=== PATIENT | male | born 1950 ===

== ENCOUNTER 2024-08-01 07:45 | Inpatient (IN) | payer OTHER ==
[~2024-08-01] VITALS: Ht 172.7 cm; Wt 97.5 kg
[2024-08-01 09:44] LABS: HEMATOCRIT 46.1 % (39.0-48.0); HEMOGLOBIN 15.6 g/dL (13-16.00); MEAN CELL VOLUME 91.7 fL (80.0-100.00); MEAN CORPUSCULAR HEMOGLOBIN 31.1 pg (27.00-32.0); MEAN CORPUSCULAR HGB CONC 33.9 g/dl (32.0-36.0); PLATELET COUNT 184 K/uL (150-450); RED BLOOD COUNT 5.02 M/uL (4.00-6.00); RED CELL DISTRIBUTION WIDTH 14.3 % (11.5-14.5)
[2024-08-01 09:48] LABS: PH,URINE 5.5 (5.0-8.0); URINE APPEARANCE Clear; URINE BILIRRUBIN Negative (NEGATIVE); URINE COLOR Yellow; URINE GLUCOSE Negative (NEGATIVE); URINE KETONE Negative (NEGATIVE); URINE LEUKOCYTE Negative; URINE NITRATE Negative; URINE PROTEIN Negative (NEGATIVE); URINE UROBILINOGEN 0.2 E.U./dl
[2024-08-01 09:49] LABS: URINE EPITHELIAL CELLS 1.5 uL (0.0-38.8); URINE RBC 46.1 uL (0.0-20.8)
[2024-08-01] MEDS ORDERED: ECOTRIN325 M1 (09:49)
[2024-08-01] MEDS ORDERED: DIOVAN320 MG (09:49)
[2024-08-01] MEDS ORDERED: LIPITOR (09:50)
[2024-08-01] MEDS ORDERED: ZYRTEC (09:50)
[2024-08-01 09:52] VITALS: BP 137/69
[2024-08-01 09:52] LABS: URINE CAST 0.15 uL (0.0-1.40); URINE WBC 1.2 uL (0.0-23.2)
[2024-08-01 09:53] LABS: URINE BLOOD TRACES
[2024-08-01 10:02] LABS: INR 1.05; PARTIAL THROMBOPLASTIN TIME 29.6 SECONDS (22.0-34.0); PROTHROMBIN TIME 11.4 SECONDS (9.0-11.5)
[2024-08-01 11:03] LABS: ALBUMIN 3.7 gm/dL (3.4-5.0); BILIRUBIN TOTAL 0.63 mg/dL (0.3-1.2); CALCIUM 9.4 mg/dL (8.5-10.1); CREATININE SERUM 1.13 mg/dL (0.70-1.30); GFR 63.61; GLOBULINA 3.6 G/DL (2.4-3.5); POTASSIUM 4.17 mEq/L (3.5-5.1); TOTAL PROTEIN 7.3 gm/dL (6.4-8.2)
[2024-08-01 12:23] LABS: RH POSITIVE
[2024-08-07] MEDS ORDERED: TRANEXAMIC ACID 100MG/1ML (1000MG) AMPUL IV ONE ×2 (11:15)
[2024-08-07] MEDS ORDERED: CEFAZOLIN SODIUM 1,000 MG VIAL IV SCH ×2 (11:15→17:00)
[2024-08-07] MEDS ORDERED: ISOPROPYL ALCOHOL 30 ML OUNCE TOP ONE (11:30)
[2024-08-07] MEDS ORDERED: VANCOMYCIN HCL 1,000 MG VIAL IR ONE (11:30)
[2024-08-07] MEDS ORDERED: ACETAMINOPHEN 500 MG GEL..CAP PO SCH (12:00)
[2024-08-07] MEDS ORDERED: MORPHINE SULFATE 4 MG/ML CARTRIDGE IV PRN (12:00)
[2024-08-07] MEDS ORDERED: SODIUM CHLORIDE 0.45 % 1,000 ML IV SCH (12:00)
[2024-08-07] MEDS ORDERED: OxyCODONE HCL 5 MG TABLET (ROXICODONE) PO PRN (12:00)
[2024-08-07] MEDS ORDERED: ONDANSETRON HCL 2 MG/ML VIAL IV PRN (12:00)
[2024-08-07] MEDS ORDERED: MORPHINE SULFATE 4 MG/ML VIAL IV ONE ×3 (16:40→23:20)
[2024-08-07] MEDS ORDERED: GABAPENTIN 300 MG CAPSULE PO SCH (17:00)
[2024-08-07] MEDS ORDERED: ENALAPRILAT DIHYDRATE 1.25 MG/ML VIAL IV PRN (18:15)
[2024-08-08 02:23] VITALS: BP 137/69; O2SAT 99
[2024-08-08 07:08] LABS: HEMOGLOBIN 13.8 g/dL (13-16.00); MEAN CELL VOLUME 90.5 fL (80.0-100.00); MEAN CORPUSCULAR HEMOGLOBIN 30.5 pg (27.00-32.0); MEAN CORPUSCULAR HGB CONC 33.8 g/dl (32.0-36.0); PLATELET COUNT 175 K/uL (150-450); RED BLOOD COUNT 4.53 M/uL (4.00-6.00); RED CELL DISTRIBUTION WIDTH 14.8 % (11.5-14.5)
[2024-08-08] MEDS ORDERED: ELIQUIS2.5 MG PO (08:19)
[2024-08-08] MEDS ORDERED: DUI500 PO (08:19)
[2024-08-08] MEDS ORDERED: PERCOCET 5-3251 EACH PO (08:19)
[2024-08-08 08:40] VITALS: BP 118/66; O2SAT 91
[2024-08-08] MEDS ORDERED: APIXABAN 2.5 MG TABLET PO SCH (09:00)
[2024-08-08] MEDS ORDERED: SENNOSIDES 1 TAB TABLET PO SCH (09:00)
[2024-08-08] MEDS ORDERED: Cyanocobalamin/Mecobalamin 1 TAB.SL SL NR (13:50)
[2024-08-08 16:57] VITALS: BP 124/63; O2SAT 98
[2024-08-08] MEDS ORDERED: VITAMIN B COMPLEX 1 EACH PO SCH (17:00)
[2024-08-09] VITALS: BP 116/69; BP 120/63; O2SAT 95
[2024-08-09] MEDS ORDERED: IRON FUM,PS/FOLIC ACID/VITC/B3 1 CAP CAPSULE PO SCH (09:00)
[2024-08-09] MEDS ORDERED: Cyanocobalamin/Mecobalamin 1 TAB.SL SL SCH (09:00)
[2024-08-09 09:51] VITALS: BP 148/77; O2SAT 94
[2024-08-09 10:53] LABS: HEMOGLOBIN 13.4 g/dL (13-16.00); MEAN CELL VOLUME 92.7 fL (80.0-100.00); MEAN CORPUSCULAR HEMOGLOBIN 31.1 pg (27.00-32.0); MEAN CORPUSCULAR HGB CONC 33.5 g/dl (32.0-36.0); PLATELET COUNT 99 K/uL (150-450); RED BLOOD COUNT 4.32 M/uL (4.00-6.00); RED CELL DISTRIBUTION WIDTH 14.8 % (11.5-14.5)
[2024-08-09 17:18] VITALS: BP 117/72; O2SAT 96
== END 2024-08-09 20:53 | DRG 470 ==
LOC: O/R 08-07 06:00 → SURH 08-07 06:00
PROVIDERS: ADMIT Orthopaedic Surgery; ATTEND Orthopaedic Surgery
PROC: 0MBL0ZZ Excision of Right Hip Bursa and Ligament, Open Approach (ICD-10-PCS; 2024-08-07)
PROC: 0SRC0JZ Replacement of Right Knee Joint with Synthetic Substitute, Open Approach (ICD-10-PCS; principal; 2024-08-07 09:45)
DX: M16.11 Unilateral primary osteoarthritis, right hip (principal); M25.751 Osteophyte, right hip; M70.61 Trochanteric bursitis, right hip